=== PATIENT | female | born 1940 | race Caucasian/White ===

== ENCOUNTER 2023-04-18 13:30 | Outpatient (RCR) | payer MEDICARE, SELFPAY ==
--- NOTE | 2023-03-22 14:39 | OPREHPOC ---
Outpatient Therapy Plan of Care This is a Multidisciplinary Plan of Care that may contain components documented by all disciplines (PT, OT, and ST.) PT Problem 1 PT Problem #1 Knowledge Deficit PT Goal 1 Goal 1* indep with HEP PT Problem 2 PT Problem #2 Impaired Functional Mobility PT Goal 1 Goal 1* pt not report any unusual feelings in her head 2* pt ambulate without assistive device and good balance 300' 3* further assessment of her vestibular system as indicated with progression of treatment.
--- NOTE | 2023-03-22 14:39 | PTOPEVAL1 ---
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 Her history includes R knee pain, to have TKR soon; meds for HTN and depression, Bilateral cataract surgery. Is using the wheeled walker due to poor balance, normally does not use assistive device. She lives alone and is indep with self and home tasks. Her symptoms are less than initial, but still present and limiting her mobility. With the evaluation, [place] testing to the R was positive for visual changes, but no nystagmus. With the [employer], her visual changes were less with each rep. Education provided to pt and her son. Her BP was 144/87 and HR 105-- she did report that she was nervous about what we would be doing. Instructed her to monitor BP and she will obtain home monitor. Skilled PT services are indicated for vestibular therapy, to begin treatment with BPPV maneuver with additional assessment of her vestibular and balance system as indic
--- NOTE | 2023-05-17 09:45 | PTOPDC ---
Assessment and note entered by Sima Hall, PT Discharge Information Assessment PT Clinical Summary PHYSICAL THERAPY DISCHARGE Kathleen has received 4 PT sessions, from Mar 22 to Apr 18; She then stopped attending. Therefore, she will be discharged at this time. The goals were not addressed. Plan of Care PT Services Indicated No
== END 2023-05-17 10:18 | disposition home or self-care (01) ==
LOC: ANHPT 13:30
PROVIDERS: PCP Family Medicine; Visit Provider Family Medicine
DX: H81.13 Benign paroxysmal vertigo, bilateral (principal)
CPT/HCPCS: 95992; 97110; 97116; 97161; 97530